=== PATIENT | female | born 1985 | race Caucasian/White ===

== ENCOUNTER 2017-11-26 14:26 | Emergency (ER) | payer MEDICAID, SELFPAY ==
[2017-11-26 15:15] VITALS: BP 112/65; PULSE 77; RESP 20; TEMP 37; O2SAT 97; BMI 27.3
--- NOTE | 2017-11-26 15:34 | HMH.EDUTC ---
[facility] [place] Disposition Clinical Impression: Acute bronchitis Right otitis media Qualifiers: Otitis media type: suppurative Chronicity: acute Recurrence: not specified as recurrent Spontaneous tympanic membrane rupture: without spontaneous rupture Qualified Code(s): H66.001 - Acute suppurative otitis media without spontaneous rupture of ear drum, right ear Disposition: Home, Self-Care Condition on Discharge: Good Instructions: DI for Otitis Media (Middle Ear Infection)-Child, DI for Acute Bronchitis Additional Instructions: * The printed education says otitis media for children but treatment, what to watch for and follow up is similar * Start antibiotic CHANDANA and be sure to take as ordered for the FULL length of time although you should start to feel better in 24-48 hours. * Monitor Temp. Follow up if fever develops * Tylenol and motrin as needed for pain. Typically ibuprofen works faster and lasts longer. I understand you can't afford it over the counter and I will include a prescription * Your cold symptoms and length of that illness is concerning as we discussed. I understand you do NOT want that addressed today, only your ear. BE sure to follow up immediately for new or worsening symptoms but also if your chest congestion worsens, you get short of breath, your wheezing more, fever, aches, chills or you don't seem to improve. * Encourage fluids, water, Gatorade, PowerAde, pedialyte if infant/toddler/child * warm compress often helps when placed over ear * sleep elevated * Follow up with primary care Immediately for new or worsening symptoms, no noticeable improvement in 48-72 hours AND in 10-14 days to ensure ears are back to baseline. Prescriptions: Ibuprofen [Ibuprofen 800mg Tab] 800 mg PO Q6HP PRN #30 tab PRN Reason: Moderate Pain Amoxicillin [Amoxicillin 875MG Tab] 875 mg PO Q12H #20 tab Forms: Work/School Release Time of Disposition: 15:47 Medical Decision Making Vital Signs: 11/26/17 15:15 Temperature 98.6 F Temperature Source Temporal Artery Scan Pulse Rate [Right Radial] 77 Respiratory Rate 20 Blood Pressure [Right Arm] 112/65 Blood Pressure Mean [Right Arm] 80 Blood Pressure Source [Right Arm] Automatic Cuff Blood Pressure Position [Right Arm] Sitting 02 Sat by Pulse Oximetry 97 Oxygen Delivery Method Room Air - Jez Inquiry Pt receiving controlled substance: No - Reevaluation(s) Reevaluation #1: Discussed symptoms and exam with pt. STRONGLY encouraged treatment of cold symptoms . Aware I am concerned about pneumonia or bronchitis. Suggested rather than amoxicillin, we try an antibiotic that will treat both ear, chest, head as well as other medications (like steroids, mucolytics, cough suppressants, bronchodilators) to help with chest. Pt refusing. Adamant she is ONLY here for right ear and ONLY wants right ear treated with the most indicated antibiotic for ear infections . States again that she is not concerned about her cold symptoms but if they get worse or don't get better, she will follow up for that then but not today even though there are medications that could make all her symptoms improve at the same time. [facility] [place] HPI - General Stated complaint: right ear ache Time Seen by Provider: 11/26/17 15:34 Mode of Arrival: Family Vehicle Source of Information: Patient Limitations: No Limitations Description of Symptoms (Recalled from Triage Doc. by RN): PT C/O RIGHT EAR PAIN AND COUGH. HEENT Symptoms (Recalled from RN notes): Yes (RIGHT EAR PAIN) Resp Symptoms (Recalled from RN notes): Yes (COUGH) Skin Symptoms (Recalled from RN notes): No MS Symptoms (Recalled from RN notes): No Functional Status (Recalled from RN notes): NA - History of Present Illness Provider Complaint: c/o right ear pain starting yesterday. Unbearable and in tears throughout the night. Tried otc ear drops. Not sure what kind. Slightly better today and tried to tough it out at work but just couldn't take it any longer . Hearing
--- NOTE | 2017-11-26 15:42 | ED_ITS ---
[facility] [place] Clinical Impression: Acute bronchitis Right otitis media Qualifiers: Otitis media type: suppurative Chronicity: acute Recurrence: not specified as recurrent Spontaneous tympanic membrane rupture: without spontaneous rupture Qualified Code(s): H66.001 - Acute suppurative otitis media without spontaneous rupture of ear drum, right ear Disposition: Home, Self-Care Condition on Discharge: Good Instructions: DI for Otitis Media (Middle Ear Infection)-Child, DI for Acute Bronchitis Additional Instructions: * The printed education says otitis media for children but treatment, what to watch for and follow up is similar * Start antibiotic CHANDANA and be sure to take as ordered for the FULL length of time although you should start to feel better in 24-48 hours. * Monitor Temp. Follow up if fever develops * Tylenol and motrin as needed for pain. Typically ibuprofen works faster and lasts longer. I understand you can't afford it over the counter and I will include a prescription * Your cold symptoms and length of that illness is concerning as we discussed. I understand you do NOT want that addressed today, only your ear. BE sure to follow up immediately for new or worsening symptoms but also if your chest congestion worsens, you get short of breath, your wheezing more, fever, aches, chills or you don't seem to improve. * Encourage fluids, water, Gatorade, PowerAde, pedialyte if infant/toddler/ child * warm compress often helps when placed over ear * sleep elevated * Follow up with primary care Immediately for new or worsening symptoms, no noticeable improvement in 48-72 hours AND in 10-14 days to ensure ears are back to baseline. Prescriptions: Ibuprofen [Ibuprofen 800mg Tab] 800 mg PO Q6HP PRN #30 tab PRN Reason: Moderate Pain Amoxicillin [Amoxicillin 875MG Tab] 875 mg PO Q12H #20 tab Forms: Work/School Release Time of Disposition: 15:47 Medical Decision Making Vital Signs: 11/26/17 15:15 Temperature 98.6 F Temperature Source Temporal Artery Scan Pulse Rate [Right Radial] 77 Respiratory Rate 20 Blood Pressure [Right Arm] 112/65 Blood Pressure Mean [Right Arm] 80 Blood Pressure Source [Right Arm] Automatic Cuff Blood Pressure Position [Right Arm] Sitting 02 Sat by Pulse Oximetry 97 Oxygen Delivery Method Room Air - Jez Inquiry Pt receiving controlled substance: No - Reevaluation(s) Reevaluation #1: Discussed symptoms and exam with pt. STRONGLY encouraged treatment of cold symptoms . Aware I am concerned about pneumonia or bronchitis. Suggested rather than amoxicillin, we try an antibiotic that will treat both ear, chest, head as well as other medications (like steroids, mucolytics, cough suppressants, bronchodilators) to help with chest. Pt refusing. Adamant she is ONLY here for right ear and ONLY wants right ear treated with the most indicated antibiotic for ear infections . States again that she is not concerned about her cold symptoms but if they get worse or don't get better, she will follow up for that then but not today even though there are medications that could make all her symptoms improve at the same time. [facility] [place] - General Stated complaint: right ear ache Time Seen by Provider: 11/26/17 15:34 Mode of Arrival: Family Vehicle Source of Information: Patient Limitations: No Limitations Description of Symptoms (Recalled from Triage Doc. by RN): PT C/O RIGHT EAR PAIN AND COUGH. HEENT Symptoms (Recalled from RN notes): Yes (RIGHT EAR PAIN) Resp Symptoms (Recall
[2017-11-26 15:47] VITALS: BP 133/77; PULSE 67; RESP 18; TEMP 36.6; O2SAT 99
== END 2017-11-26 15:48 | disposition home or self-care (01) ==
PROVIDERS: Emergency Provider Nurse Practitioner Family; Family Provider Family Medicine
DX: H66.001 Acute suppurative otitis media without spontaneous rupture of ear drum, right ear (principal)
CPT/HCPCS: 99201

== ENCOUNTER → 2022-10-06 15:25 | Outpatient (CLI) | payer BC, SELFPAY ==
[2022-10-07 09:01] LABS: Basophils # 0.1 K/mm3 (0-0.2); Basophils % 0.9 % (0.1-2.0); Eosinophils # 0.1 K/mm3 (0.0-0.4); Eosinophils % 0.9 % (0.1-12.0); Hematocrit 38.2 % (37.0-47.0); Hemoglobin 12.1 g/dL (12.2-16.2); Lymphocytes # 2.2 K/mm3 (0.7-4.5); Lymphocytes % 28.8 % (10-50); Mean Corpuscular HGB Conc 31.7 g/dL (31.8-35.4); Mean Corpuscular Hemoglobin 27.5 pg (27.0-31.2); Mean Corpuscular Volume 86.7 fl (81-99); Mean Platelet Volume 13.5 fl (7.4-10.4); Monocytes # 0.5 K/mm3 (0.1-1.0); Monocytes % 6.4 % (1.7-9.3); Neutrophils # 4.8 K/mm3 (1.8-7.8); Platelet Count 242 K/mm3 (142-424); Red Blood Count 4.41 M/mm3 (4.20-5.40); Red Cell Distribution Width 15.6 % (11.5-17.5); White Blood Count 7.6 K/mm3 (4.8-10.8)
[2022-10-07 09:07] LABS: Alanine Aminotransferase 27 U/L (12-78); Albumin Level 4.3 g/dl (3.5-5.0); Albumin/Globulin Ratio 1.3 (1.1-1.8); Alkaline Phosphatase 140 U/L (38-126); Anion Gap 12.4 mEq/L (5-15); Aspartate Amino Transferase 30 U/L (14-36); Bilirubin,Total 0.3 mg/dl (0.2-1.3); Blood Urea Nitrogen 9 mg/dl (7-17); Calcium 10.2 mg/dl (8.4-10.2); Carbon Dioxide 27 mmol/L (22.0-30.0); Chloride 104 mmol/L (98-107); Chol/HDL Ratio 6.3 (1-3.5); Cholesterol 202 mg/dl (140-200); Estimated Glomerular Filt Rate 82 ml/min (>60); GFR (African American) 99 ML/MIN (>60); Globulin 3.2 g/dL (1.3-3.2); Glucose 82 mg/dl (74-100); HDL Cholesterol 32 mg/dl (40-60); Potassium 4.4 mmoL/L (3.5-5.1); Sodium 139 mmol/L (136-145); Total Protein,Serum 7.5 g/dl (6.3-8.2); Triglycerides 231 mg/dl (30-150); VLDL Cholesterol 46 mg/dL (0-40)
[2022-10-07 09:18] LABS: Direct LDL Cholesterol 113.26 mg/dL (100-129)
[2022-10-07 09:24] LABS: 25-OH Vitamin D, Total 28.3 ng/mL (30-100)
[2022-10-07 09:25] LABS: Free T4 (Free Thyroxine) 1.15 ng/dl (0.78-2.19)
[2022-10-07 09:38] LABS: Thyroid Stimulating Hormone 2.41 uIU/mL (0.465-4.68)
[2022-10-25 19:49] LABS: Hep A Ab, IgM NEGATIVE
[2022-10-25 19:50] LABS: Hepatitis B Core Antibody IgM NEGATIVE; Hepatitis B Surface Antigen NEGATIVE; Hepatitis C Antibody >11.0
== END ==
PROVIDERS: PCP Emergency Medicine; Visit Provider Emergency Medicine
DX: K21.9 Gastro-esophageal reflux disease without esophagitis (principal); E55.9 Vitamin D deficiency, unspecified; F19.10 Other psychoactive substance abuse, uncomplicated
CPT/HCPCS: 80053; 80061; 80074; 82306; 84439; 84443; 85025; 87522

== ENCOUNTER 2023-10-25 07:21 | Outpatient (CLI) | payer BC, SELFPAY ==
[2023-10-25 22:00] LABS: Amphetamine/Metha Screen,Urine Negative ng/ml (<1000); Barbiturates Screen,Urine Negative ng/ml (<200); Cannabinoid Screen,Urine Negative ng/ml (<50); Cocaine Screen,Urine Negative ng/ml (<300); Methadone Screen,Urine Positive ng/ml (<300); Opiate Screen,Urine Negative ng/ml (<300)
[2023-10-25 22:26] LABS: Benzodiazepines Screen,Urine Positive ng/ml (<200); Phencyclidine Screen,Urine Negative ng/ml (<25)
[2023-10-31 13:48] LABS: Alprazolam Negative (Cutoff=100); Benzodiazepines Positive ng/mL (Cutoff=100); Clonazepam Positive (.); Clonazepam Confirm 1210 ng/mL (Cutoff=100); Flurazepam Negative (Cutoff=100); Lorazepam Negative (Cutoff=100); Midazolam Negative (Cutoff=100); Temazepam Negative (Cutoff=100); Triazolam Negative (Cutoff=100)
== END 2023-10-25 23:59 ==
LOC: LAB.DROPOF 10-26 07:22
PROVIDERS: PCP Physician Assistant; Visit Provider Physician Assistant
DX: F41.9 Anxiety disorder, unspecified (principal)
CPT/HCPCS: 80307; 80346

== ENCOUNTER 2023-10-26 10:28 | Outpatient (CLI) | payer BC, SELFPAY | END 2023-10-26 23:59 | PROVIDERS: PCP Physician Assistant; Visit Provider Physician Assistant | DX: F41.9 Anxiety disorder, unspecified (principal) | CPT/HCPCS: 80346 ==

== ENCOUNTER 2023-12-16 08:41 | Outpatient (CLI) | payer BC, SELFPAY ==
--- NOTE | 2023-12-16 08:42 | US_ITS ---
FINAL REPORT TECHNIQUE: Limited sonographic imaging of the urinary bladder was obtained. CLINICAL HISTORY: urinary retention FINDINGS: Urinary bladder is incompletely distended. There is minimal postvoid residual of 8 cc. No mass is identified. IMPRESSION: Incomplete distention of the urinary bladder with minimal postvoid residual. Reviewed, Interpreted and Dictated by Ha Chase MD Transcribed by Araceli Ceja Authenticated and [facility]
== END 2023-12-16 23:59 ==
LOC: RAD 08:42
PROVIDERS: PCP Physician Assistant; Visit Provider Physician Assistant
DX: R33.8 Other retention of urine (principal)
CPT/HCPCS: 76857

== ENCOUNTER 2024-01-10 09:18 | Outpatient (RCR) | payer BC, SELFPAY ==
--- NOTE | 2024-01-10 11:53 | HMH.PTOPEV ---
PT Outpatient Evaluation Rehab PT Outpatient Evaluation Start: 01/10/24 09:38 Freq: Status: Active Protocol: Document 01/10/24 09:38 MICHAEL (Rec: 01/10/24 11:53 MICHAEL [id number]) E-signed By Jaye Hodgson, PT Outpatient Therapy Subjective History Subjective History Pt is a 38 y/o female who reports to PT with main complaint of difficulty urinating unless she sits straight up and leans forward. Pt reports she was told she has a prolapsed bladder. Pt reports she had a bladder ultrasound on 12/16/23 with impression of Incomplete distention of the urinary bladder with minimal postvoid residual. Pt reports she has not seen an OBGYN or pelvic health PT for this issues. Pt denies saddle anesthesia or incontinence. Pt with secondary complaint of low back described as tightness with prolonged activity, lifting, and bending forward. Pt reports she often gets muscle spasms of the right posterior hip and intermittent sharp, shooting pain from the right posterior hip to her pinky toe. Pt reports this often feels numb and tingly as well. Pt reports radiating pain occurs ~2x/week and is brief in nature lasting 5 minutes. Pt reports she has birthed 5 children vaginally and has had epidurals with all but one. Pt reports her last child was born in 2020. Pt denies further comorbidities to report. New diagnosis of cancer in past 12 No months? Chief Complaint Pain,Paresthesia Symptom Type Sharp,Numbness,Tingling, Shooting Symptoms Relieved By Rest/Positioning,Heat Symptoms Aggravated By Bending/Stooping,Physical Activity Current Functional Limitations Lifting,Housework,Standing Symptom Description Intermittent Level of pain today (0-10) 0 Pain scale - at its best (0-10) 0 Pain scale - at its worst (0-10) 5 Lumbopelvic Eval Posture Lumbar Spine Posture Standing Position Increased Lordosis Assistive device Assistive Devices None / NA Gait Observation General Gait Pattern Observation No Deviations/Normal Palapation tenderness bilateral lumbar spinal tenderness Yes paraspinal tenderness Yes buttock tenderness Yes Lumbar/Sacral Palpation Findings Tenderness Lumbar/Sacral Palpation Overall Comment 2-3/4 TTP of lumbar SP and gluteal mm, B ASIS Accessory Movement L-spine Vertebrae Accessory Movements Central P/A [place] that Elicit Symptoms L2 bilateral L3 bilateral L4 bilateral L5 bilateral S1 bilateral Range of Motion Lumbar Spine Active Flexion Range of 80 Motion (degrees) Lumbar Spine Active Extension Range of 30 Motion (degrees) Left Lumbar Spine Lateral Flexion Active 15 Range of Motion (degrees) Right Lumbar Spine Lateral Flexion 20 Active Range of Motion (degrees) Manual Muscle Test Bilateral Knee Extension Strength Grade 5 Normal Knee Flexion Strength Grade 5 Normal Hip Flexion Strength Grade 4- Good- Hip Abduction Strength Grade 4- Good- Hip Adduction Strength Grade 4 Good Hip Extension Strength Grade 3+ Fair+ Ankle Dorsiflexion Strength Grade 5 Normal DTR Rt Patellar 1+ Lt Patellar 1+ Rt Gastroc/Soleus 1+ Lt Gastroc/Soleus 1+ Altered Sensation Bilateral LE Dermatome Level S1 Comment decreased right compared to left Special Tests Hip Kamaljit (KANE) Test Positive Right Hip Piriformis Test Negative Right Sciatic Nerve Tension Test Negative Left,Negative Right Unilateral Straight Leg Raise (Lasegue) Negative Left,Negative Right Test Oswestry Index Section 1 Pain Intensity The pain comes and goes and is very mild Section 2 Personal Care (Washing,Dresing) my way of washing or dressing even though it causes some pain Section 3 Lifting I can lift heavy weights, but it gives me extra pain Section 4 Walking I have no pain when walking Section 5 Sitting Pain prevents me from sitting for more than one hour Section 6 Standing I cannot stand more than 1 hour without increasing pain Section 7 Sleeping Because of my pain, my normal night's sleep is less than 4 hours Section 8 Social Life My social life is normal but increases the degree of pain Section 9 Traveling I get no pain when traveling Section 10 Changing Degreee of Pain My pain is neither getting better or worse Score and Risk Level Oswestry Sc 13 Oswestry Risk Level Mild Disability Outpatient Therapy Assessment Impairments Problems/Impairmments Palpation Tenderness,Impaired Range of Motion,Impaired Strength,Impaired Standing, Impaired Lifting,Impaired Household Care,Impaired Bending,Subjective C/O Pain, Impaired Self Care/Self Management Prognosis Rehab Potential Good Comment Treat for low back pain. Refer to pelvic health specialist for prolapsed bladder. Clinical Impression Consistent with Diagnosis Yes Short Term Goals Number of Weeks 2 Improve Self Care/Self Management Yes Patient to be Ind w/ HEP Yes Chcf Goals Number of Weeks 4-6 Decreased Palpation Tenderness Yes Increase Range of Motion Yes: Improve lumbar AROM flex to 100, LF to 25 Increase Strength Yes: Improve LE/core strength to 4+/5 grossly to assist with function Increase Ability to Stand Yes: perform cooking while standing 20' with pain 2-3/10 or less Restore Ability to Lift Objects Overhead Yes: 30# with proper mechanics to assist with LBP and prevent injury Improve Oswestry Score Yes: Improve score to 8 to improve overall QOL Decrease Subjective C/O Pain Yes: Improve LBP at worst to 2 -3/10 to improve overall QOL Outpatient Therapy Plan of Care Treatment Plan May Include Therapeutic Exercise Including Home Yes Exercise Program Manual Therapy Techniques Yes Neuromuscular Re-education Yes Therapeutic Activities to Return to Yes Previous Functional/Work Level ADL/Self Care Education Yes Mechanical Traction Yes Dry Needling Yes Thermal Modalities Yes Electrical Stimulation Yes Ultrasound/Phonophoresis Yes Iontophoresis Yes Massage Yes Eval/Re-Eval Yes Frequency Times per week 2 Duration Number of Weeks 4-6 Addendums This patient is a candidate for social No or vocational rehab? Patient/Guardian verbally acknowledges Yes understanding of treatment program and consents to further treatment? Patient/Guardian verbally acknowledges Yes understanding of diagnosis, prognosis and goals for treatment? Eval Complexity PT Charges 26951 - Low Complexity Shoulder/Elbow Eval Shoulder Objective Measurements Elbow Objective Measurements PHYSICIAN CERTIFICATION: I certify the specified therapy services for Vivian Matthews are required, authorized, and reviewed every 30 days.
== END 2024-01-10 10:30 | disposition home or self-care (01) ==
LOC: PT 09:18
PROVIDERS: Visit Provider Physician Assistant
DX: M54.50 Low back pain, unspecified (principal)
CPT/HCPCS: 97110; 97163

== ENCOUNTER 2024-02-22 15:10 | Outpatient (CLI) | payer BC, SELFPAY ==
[2024-02-22 16:40] LABS: Basophils % 0.7 % (0.1-2.0); Eosinophils # 0.2 K/mm3 (0.0-0.4); Eosinophils % 3.7 % (0.1-12.0); Hematocrit 35.8 % (37.0-47.0); Hemoglobin 11.4 g/dL (12.2-16.2); Lymphocytes # 1.8 K/mm3 (0.7-4.5); Mean Corpuscular Hemoglobin 26.3 pg (27.0-31.2); Mean Corpuscular Volume 82.4 fl (81-99); Mean Platelet Volume 8.7 fl (7.4-10.4); Monocytes # 0.3 K/mm3 (0.1-1.0); Monocytes % 5.8 % (1.7-9.3); Neutrophils # 3.3 K/mm3 (1.8-7.8); Neutrophils % 58.8 % (37.0-80.0); Platelet Count 318 K/mm3 (142-424); Red Blood Count 4.35 M/mm3 (4.20-5.40); Red Cell Distribution Width 16.1 % (11.5-17.5); White Blood Count 5.7 K/mm3 (4.8-10.8)
[2024-02-22 17:06] LABS: Alanine Aminotransferase 17 U/L (12-78); Albumin Level 3.8 g/dl (3.5-5.0); Albumin/Globulin Ratio 1.3 (1.1-1.8); Alkaline Phosphatase 109 U/L (38-126); Anion Gap 10.3 mEq/L (5-15); Aspartate Amino Transferase 26 U/L (14-36); Bilirubin,Total 0.4 mg/dl (0.2-1.3); Blood Urea Nitrogen 9 mg/dl (7-17); Calcium 9.4 mg/dl (8.4-10.2); Carbon Dioxide 28 mmol/L (22.0-30.0); Chloride 108 mmol/L (98-107); Chol/HDL Ratio 6.8 (1-3.5); Cholesterol 196 mg/dl (140-200); Estimated Glomerular Filt Rate 63 ml/min (>60); GFR (African American) 76 ML/MIN (>60); Globulin 2.9 g/dL (1.3-3.2); Glucose 83 mg/dl (74-100); HDL Cholesterol 29 mg/dl (40-60); Potassium 4.3 mmoL/L (3.5-5.1); Sodium 142 mmol/L (136-145); Total Protein,Serum 6.7 g/dl (6.3-8.2); Triglycerides 232 mg/dl (30-150); VLDL Cholesterol 46 mg/dL (0-40)
[2024-02-22 17:18] LABS: Direct LDL Cholesterol 102.65 mg/dL (100-129)
[2024-02-22 17:26] LABS: 25-OH Vitamin D, Total 67.7 ng/mL (30-100)
[2024-02-22 17:39] LABS: Thyroid Stimulating Hormone 2.86 uIU/mL (0.465-4.68)
[2024-02-22 18:51] LABS: Iron 54 ug/dL (37-170)
[2024-02-22 19:02] LABS: Total Iron Binding Capacity 325 ug/dL (265-497)
[2024-02-22 20:01] LABS: Hemoglobin A1C 5.2 % (4.0-6.0)
== END 2024-02-22 23:59 | disposition home or self-care (01) ==
LOC: LAB 16:51
PROVIDERS: PCP Physician Assistant; Visit Provider Family Medicine
DX: E66.9 Obesity, unspecified (principal); D64.9 Anemia, unspecified; Z01.89 Encounter for other specified special examinations; Z68.32 Body mass index [BMI] 32.0-32.9, adult; Z79.899 Other long term (current) drug therapy
CPT/HCPCS: 36415; 80053; 80061; 82306; 83036; 83540; 83550; 84443; 85025

== ENCOUNTER 2024-07-02 15:05 | Outpatient (CLI) | payer BC, SELFPAY ==
[2024-07-02 14:43] LABS: Basophils % 0.6 % (0.1-2.0); Eosinophils # 0.1 K/mm3 (0.0-0.4); Hematocrit 38.6 % (37.0-47.0); Hemoglobin 12.4 g/dL (12.2-16.2); Lymphocytes # 1.7 K/mm3 (0.7-4.5); Lymphocytes % 33.4 % (10-50); Mean Corpuscular HGB Conc 32.1 g/dL (31.8-35.4); Mean Corpuscular Hemoglobin 27.2 pg (27.0-31.2); Mean Corpuscular Volume 84.7 fl (81-99); Mean Platelet Volume 10.4 fl (7.4-10.4); Monocytes # 0.3 K/mm3 (0.1-1.0); Monocytes % 6.1 % (1.7-9.3); Platelet Count 380 K/mm3 (142-424); Red Blood Count 4.55 M/mm3 (4.20-5.40); Red Cell Distribution Width 15.5 % (11.5-17.5)
[2024-07-02 15:05] LABS: Alanine Aminotransferase 43 U/L (12-78); Albumin/Globulin Ratio 1.2 (1.1-1.8); Alkaline Phosphatase 103 U/L (38-126); Anion Gap 12.6 mEq/L (5-15); Aspartate Amino Transferase 27 U/L (14-36); Bilirubin,Total 0.4 mg/dl (0.2-1.3); Blood Urea Nitrogen 6 mg/dl (7-17); Carbon Dioxide 23 mmol/L (22.0-30.0); Chloride 106 mmol/L (98-107); Chol/HDL Ratio 5.5 (1-3.5); Cholesterol 213 mg/dl (140-200); Estimated Glomerular Filt Rate 95 ml/min (>60); GFR (African American) 115 ML/MIN (>60); Globulin 3.3 g/dL (1.3-3.2); Glucose 84 mg/dl (74-100); HDL Cholesterol 39 mg/dl (40-60); Potassium 4.6 mmoL/L (3.5-5.1); Sodium 137 mmol/L (136-145); Total Protein,Serum 7.3 g/dl (6.3-8.2); Triglycerides 82 mg/dl (30-150); VLDL Cholesterol 16 mg/dL (0-40)
[2024-07-02 15:17] LABS: Direct LDL Cholesterol 135.56 mg/dL (100-129)
[2024-07-02 15:23] LABS: 25-OH Vitamin D, Total 62.2 ng/mL (30-100)
[2024-07-02 15:28] LABS: T4 (Thyroxine) 9.4 ug/dl (5.53-11.0); Triiodothryronine (T3) Uptake 32 % (23.5-40.5)
[2024-07-02 15:37] LABS: Thyroid Stimulating Hormone 2.71 uIU/mL (0.465-4.68)
[2024-07-02 15:42] LABS: Thyroid Stimulating Hormone 2.61 uIU/mL (0.465-4.68)
[2024-07-03 11:13] LABS: Thyroid Peroxidase Antibodies 11 IU/mL (0-34)
[2024-07-05 07:17] LABS: Thyroid Stimulating Immunoglob <0.10 IU/L (0.00-0.55)
== END 2024-07-02 23:59 | disposition home or self-care (01) ==
LOC: LAB.DROPOF 15:05
PROVIDERS: PCP Physician Assistant; Visit Provider Physician Assistant
DX: R53.83 Other fatigue (principal); Z68.31 Body mass index [BMI] 31.0-31.9, adult; E66.9 Obesity, unspecified
CPT/HCPCS: 80050; 80053; 80061; 82306; 84436; 84443; 84445; 84479; 85025; 86376

== ENCOUNTER 2025-04-27 19:29 | Emergency (ER) | payer OTHER, SELFPAY ==
--- OUTSIDE RECORDS SUMMARY | 2025-03-13 09:00 | XMS_ITS | Encounter Summary ---
Author Organization Healthcare Address [address] [place] [address] Care Team Providers Care Side Framer Name Role Phone Lio Leo MD Primary Care Provider [phone] Encounter Details Date Type Department Care Team (Late st Contact Info) Description 03/13/2025 9:00 AM EDT Consult [facility] [address] [place] [address] Uvaldo Franco MD [address] [address] Regular astigmatism, bilateral (Primary Dx); [...] Stereo Fly: - Animals: 0/3 Circles: 0/9 [place] 4 Dot Distance: Diplopia- 2R, 3G Near: [...] of EOM sx with Dr. Mayelin Nguyen, [place]. ~5y ago. Now with recurrent X(T). 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 Have asked for [...] This patient will need to be followed long-term in my clinic to ensure optimal visual [...] Description 08/13/2025 1:30 PM EDT Office Visit [facility] [address] [place] [address] Uvaldo Franco MD [address] [place] [address] documented as of this encounter [...] documented as of this encounter Care Teams Side Framer Relationship Specialty Start Date End Date Lio Leo MD [address] [place] [phone] PCP - General Family Medicine 10/24/20 documented as of this encounter
--- OUTSIDE RECORDS SUMMARY | 2025-04-10 09:30 | XMS_ITS | Encounter Summary ---
Author Organization [facility] Address [address] [place] [address] Care Team Providers Care Inventory Taker Name Role Phone Lio Leo MD Primary Care Provider [phone] Reason for Visit * Reason Comments Strabismus Encounter Details Date Type Department Care Team (Late st Contact Info) Description 04/10/2025 9:30 AM EDT Office Visit [facility] - Pediatrics [address] [place] [address] Uvaldo Franco MD [address] [address] Regular astigmatism, bilateral (Primary Dx); [...] Current Outpatient Medications (Ophthalmic Drugs) Medication Sig wgxmehuk-kalztigcz-ikeruzxckwjeqeykuz (Polydex) 3.5-56139-2.1 ointment ophthalmic ointment Apply small amount to [...] Oriented x3: Yes Mood/Affect: Normal Additional Tests [place] 4 Dot Distance: Fusion Near: Fusion Strabismus [...] This patient will need to be [facility] in my clinic to ensure optimal visual [...] Description 08/13/2025 1:30 PM EDT Office Visit [facility] [address] [place] [address] Uvaldo Franco MD [address] [address] documented as of this encounter Visit Diagnoses Diagnosis Regular astigmatism, bilateral- Primary Intermittent exotropia, alternating History of strabismus surgery Diplopia documented in this encounter Additional Health Concerns Assessment Noted Time A Body Mass Index follow-up plan has been documented for the patient 04/10/2025 10:38 AM EDT documented as of this encounter Care Teams Inventory Taker Relationship Specialty Start Date End Date Lio Leo MD [address] [place] [address] PCP - General Family Medicine 10/24/20 documented as of this encounter
[2025-04-27 19:32] VITALS: BP 132/73; PULSE 81; RESP 16; TEMP 36.6; O2SAT 98; BMI 31.8
--- OUTSIDE RECORDS SUMMARY | 2025-04-27 19:43 | XMS_ITS | Encounter Summary ---
Author Organization [facility] Address [address] [place] [address] Care Team Providers Care Passenger Agent Name Role Phone Lio Leo MD Primary Care Provider + [phone] Encounter Details Date Type Department Care Team (Latest Contact Info) Description 04/10/2025 Travel Social History Tobacco Use Types Packs/Day Years [...] on file documented as of this encounter Plan of Treatment Upcoming Encounters Date Type Department Care Team (Late st Contact Info) Description 08/13/2025 1:30 PM EDT Office Visit [facility] - [facility] [address] [place] [address] Uvaldo Franco MD [address] [address] documented as of this encounter Visit Diagnoses Not on filedocumented in this encounter Additional Health Concerns Assessment Noted Time A Body Mass Index follow-up plan has been documented for the patient 04/10/2025 10:38 AM EDT documented as of this encounter Care Teams Passenger Agent Relationship Specialty Start Date End Date Lio Leo MD [address] [place] [address] PCP - General Family Medicine 10/24/20 documented as of this encounter
--- OUTSIDE RECORDS SUMMARY | 2025-04-27 19:43 | XMS_ITS | Encounter Summary ---
Author Organization [facility] Address [address] [place] [address] Care Team Providers Care Tent Assembler Name Role Phone Lio Leo MD Primary Care Provider [phone] Encounter Details Date Type Department Care Team (Late Contact Info) Description 03/15/2025 Telephone [facility] - Pediatrics [address] [place] [address] Uvaldo Franco MD [address] [address] Social History Tobacco Use Types Packs/Day Years [...] as of this encounter Miscellaneous Notes * Telephone Encounter - Audrey Mesa - 03/15/2025 3:05 PM EDT Requested previous sx records documented in this encounter Plan of Treatment Upcoming Encounters Date Type Department Care Team ([facility] Contact Info) Description 08/13/2025 1:30 PM EDT Office Visit [facility] - Pediatrics [address] [place] [address] Uvaldo Franco MD [address] [address] documented as of this encounter Visit Diagnoses Not on filedocumented in this encounter Additional Health Concerns Assessment Noted Time A Body Mass Index follow-up plan has been documented for the patient 12/11/2024 2:19 PM EST documented as of this encounter Care Teams Tent Assembler Relationship Specialty [place] [address] [place] [address] PCP - General Family Medicine 10/24/20 documented as of this encounter
--- OUTSIDE RECORDS SUMMARY | 2025-04-27 19:43 | XMS_ITS | Encounter Summary ---
Author Organization [facility] Address [address] [place] [address] Care Team Providers Care Motor Mechanic Name Role Phone Lio Leo MD Primary Care Provider [phone] Encounter Details Date Type Department Care Team (Latest Contact Info) Description 03/13/2025 Travel Social History Tobacco Use Types Packs/Day [...] Description 08/13/2025 1:30 PM EDT Office Visit [facility] - Pediatrics [address] [place] [address] Uvaldo Franco MD [address] [address] documented as of this encounter Visit Diagnoses Not on filedocumented in this encounter Additional Health Concerns Assessment Noted Time A Body Mass Index follow-up plan has been documented for the patient 12/11/2024 2:19 PM EST documented as of this encounter Care Teams Motor Mechanic Relationship Specialty Start Date End Date Lio Leo MD [address] [place] [address] PCP - General Family Medicine 10/24/20 documented as of this encounter
--- OUTSIDE RECORDS SUMMARY | 2025-04-27 19:43 | XMS_ITS | Encounter Summary ---
Author Organization [facility] Address [address] [place] [address] Care Team Providers Care Filler Block Inserter Remover Name Role Phone Lio Leo MD Primary Care Provider + [phone] Reason for Visit * Reason Onset Date Comments Eye Problem 03/27/2025 Double vision (r ecently had surgery) Encounter Details Date Type Department Care Team (Late st Contact Info) Description 03/27/2025 Telephone [facility] - Pediatrics [address] [place] [address] Uvaldo Franco MD [address] [address] Eye Problem (Double vision (recently had surgery)) Social History Tobacco Use Types Packs/Day Years [...] encounter Miscellaneous Notes * Telephone Encounter - Karyn Hinds Demarco - 03/28/2025 1:20 PM EDT Clinical Concern/Question Reason for Call: Patient is having really bad double vision and feels like she is crossed-eyed . Best contact number: [phone] (home) Optimal time of day to reach caller: ANYTIME Additional comments/information from caller: None Note: Please do not reply to this message. Follow-up communication and further actions as a result of this message need to be communicated with the patient directly, if the patient is not active onMyChart. If the patient is active on MyChart, they will receive notification of the communication/outcome via MyChart. * Telephone Encounter - Marianela Bro - 03/27/2025 1:20 PM EDT Triage Note 03/27/2025 1:20 PM Refill sent to preferred pharmacy on file. documented in this encounter Plan of Treatment Upcoming Encounters Date Type Department Care Team (Late st Contact Info) Description 08/13/2025 1:30 PM EDT Office Visit [facility] - Pediatrics [address] [place] [address] Uvaldo Franco MD [address] [address] documented as of this encounter Visit Diagnoses Not on filedocumented in this encounter Additional Health Concerns Assessment Noted Time A Body Mass Index follow-up plan has been documented for the patient 12/11/2024 2:19 PM EST documented as of this encounter Care Teams Filler Block Inserter Remover Relationship Specialty [place] [address] [place] [address] PCP - General Family Medicine 10/24/20 documented as of this encounter
--- OUTSIDE RECORDS SUMMARY | 2025-04-27 19:43 | XMS_ITS | Encounter Summary ---
Author Organization [facility] Address [address] [place] [address] Care Team Providers Care Proctologist Name Role Phone Lio Leo MD Primary Care Provider [phone] Encounter Details Date Type Department Care Team (Late Contact Info) Description 03/27/2025 Orders Only [facility] - Pediatrics [address] [place] [address] Uvaldo Franco MD [address] [address] Social History Tobacco Use Types [...] Encounters Date Type Department Care Team (Late Contact Info) Description 08/13/2025 1:30 PM EDT Office Visit [facility] Pediatric[facility] [address] [place] [address] Uvaldo Franco MD [address] [address] documented as of this encounter Visit Diagnoses Not on filedocumented in this encounter Additional Health Concerns Assessment Noted Time A Body Mass Index follow-up plan has been documented for the patient 12/11/2024 2:19 PM EST documented as of this encounter Care Teams Proctologist Relationship Specialty Start Date End Date Lio Leo MD [address] [place] [address] PCP - General Family Medicine 10/24/20 documented as of this encounter
--- OUTSIDE RECORDS SUMMARY | 2025-04-27 19:43 | XMS_ITS | Clinical Summary ---
Author Organization [facility] Address [address] [place] [address] Care Team Providers Care Medical Technologist Microbiology Name Role Phone Lio Leo MD Primary Care Provider Allergies No known active allergies Medications methadone (Methadose) 40 MG dispersible tablet 65MG DAILY 6 Active clonazePAM (KlonoPIN) 0.5 MG tablet 4 Active atomoxetine (Strattera) 40 MG capsule 4 Active desvenlafaxine (Pristiq) 100 MG 24 hr tablet 4 Active cariprazine (Vraylar) 3 MG capsule 4 Active neomycin-polymyx in-dexamethameth asone (Polydex) 3.5-15148-6.1 ointment ophthalmic ointment Apply small amount to operative eye(s) 2 times per day for 1 week. 3.5 g 1 5 Active Additional Information Patient not taking.Reported on 04/10/2025 Active Problems Problem Noted Date Diagnosed Date Intermittent exotropia, alternating 12/11/2024 History of strabismus surgery 12/11/2024 Diplopia 12/11/2024 Encounters Date Type Department Care Team Description 04/10/2025 9:30 AM EDT Office Visit [facility] - Pediatrics [address] [place] [address] Uvaldo Franco MD Regular astigmatism, bilateral (Primary Dx); Intermittent exotropia, alternating; History of strabismus surgery; Diplopia 04/10/2025 Travel 03/27/2025 Telephone [facility] [address] [place] [address] Uvaldo Franco MD Eye Problem (Double vision (recently had surgery)) 03/27/2025 Orders Only [facility] [address] [place] [address] Uvaldo Franco MD 03/15/2025 Telephone [facility] [address] [place] [address] Uvaldo Franco MD 03/13/2025 9:00 AM EDT Consult [facility] [address] [place] [address] Uvaldo Franco MD Regular astigmatism, bilateral (Primary Dx); Intermittent exotropia, alternating; History of strabismus surgery; Diplopia 03/13/2025 Travel from Last 3 Months Family History Medical History Relation Name Comments Alcohol abuse Father Hepatitis, C Virus Father Cardiac disorder Other 1 Colon cancer Other 2 Other cancer Other 3 Relation Name Status Comments Father Other 1 Other 2 Other 3 Social History Tobacco Use Types Packs/Day Years Used Date Smoking Tobacco: Every Day Cigarettes Passive Smoke Exposure: Current Smokeless Tobacco: Never Tobacco Cessation:Ready to Q uit: Not Asked; Counseling Given: Not Answered Alcohol Use Standard Drinks/Week Comments Yes 0 (1 standard drink = 0.6 oz pur e alcohol) Comments Unknown Sex and Gender Information Value Date Recorded Sex Assigned at Not on file Legal Sex Female 6:34 PM EDT Gender Identity Not on file Sexual Orientation Not on file Last Filed Vital Signs Vital Sign Reading Time Taken Comments Blood Pressure - - Pulse - - Temperature - - Respiratory Rate - - Oxygen Saturation - - Inhaled Oxygen Concentration - - Weight 64 kg (141 lb 2.2 oz) 05/23/2017 8:57 AM EDT Height 160 cm (5' 3 ) 04/13/2017 9:57 AM EDT Body Mass Index 25 04/13/2017 9:57 AM EDT Plan of Treatment Upcoming Encounters Date Type Department Care Team (Late st Contact Info) Description 08/13/2025 1:30 PM EDT Office Visit [facility] [address] [place] [address] Uvaldo Franco MD [address] [place] [address] Health Maintenance Due Date Last Done Comments [facility]-Depression Screening 1987 [facility]-Infant/Child/Adol SDOH Screenings 1987 [facility]-Varicella Vaccines (1 of 2 - 13+ 2-dose series) 2000 HPV Vaccines (1 - 3-dose series) 2002 [facility]- SDOH Screenings 2005 [facility]-Adult SDOH Screenings 2005 [facility]-DTaP,Tdap,and Td Vaccines (1 - Tdap) 2006 [facility]-Pneumococcal Vaccine: Pediatrics (0 to 5 Years) and At-Risk Patients (6 to 49 Years) (1 of 2 - PCV) 2006 [facility]-Pap Smear 2008 [facility]-Cervical Cancer Screening 2017 [facility]-HPV/Cotest 2017 [facility]-BMDHT-01 Vaccine (1 - 2023- season) 2024 [facility]-Influenza Vaccine (#1) 2025 [facility]-Zoster Vaccines (1 of 2) 2037 [facility]-Hepatitis B Vaccines Completed 999, 02/02/1999, 12/31/1998 [facility]-HIV Screening Completed 08/31/2016 [facility]-Hepatitis C Screening Completed 08/31/2016 [facility]-HIB Vaccines Aged Out No longer e ligible based on patient's age to complete this topic [facility]-Hepatitis A Vaccines Aged Out No longer eligible based on patient's age to complete this topic [facility]-IPV Vaccines Aged Out No longer e ligible based on patient's age to complete this topic [facility]-Rotavirus Vaccines Aged Out No lo nger eligible based on patient's age to complete this topic Procedures Procedure Name Priority Date/Time Associated Diagnosis Comments EXTERNAL PHOTOGRAPHY - OU - BOTH EYES Routine 04/19/2025 4:31 PM EDT Regular astigmatism, bilateral HEPATITIS C ANTIBODY W/REFLEX TO HCV QUANT PCR Routine 08/31/2016 11:14 AM EST HIV 1/2 ANTIBODY/ANTIGEN SCREEN WITH REFLEX TO HIV I/II DIFFERENTIATION Routine 08/31/2016 11:14 AM EST from Last 3 Months or Most Recently Relevant to Health Maintenance Results * External Photography - OU - Both Eyes (04/19/2025 4:31 PM EDT) Anatomical Region Laterality Modality Head Other Uvaldo Franco MD OPHTH PHOTOGRAPHY Final Result * HIV 1 & 2 Antibody/Antigen Screen (08/31/2016 11:14 AM EST) HIV 1 Result NONREACTIVE Screening for HIV 1 and 2 antibodies is NONREACTIVE. No confirmatory testing is required. SUNQUEST 08/31/2016 11:1 4 AM EST 08/31/2016 5:48 PM EST Brandon Canales MD LAB BLOOD ORDERABLES Final Res ult Performing Organization Address City/[facility] de Phone Number SUNQUEST * Hepatitis C Antibody (08/31/2016 11:14 AM EST) Hepatitis C Antibody BEING REPEATED TO CONFIRM SUNQUEST 08/31/2016 11:1 4 AM EST 08/31/2016 5:48 PM EST Brandon Canales MD LAB BLOOD ORDERABLES Final Res ult Performing Organization Address City/State/[facility] Co de Phone Number SUNQUEST from Last 3 Months or Most Recently Relevant to Health Maintenance Insurance [facility] MEDICAID Care Teams Medical Technologist Microbiology Relationship Specialty Start Date End Date Lio Leo MD [address] [place] [address] PCP - General Family Medicine 10/24/20
--- NOTE | 2025-04-27 19:50 | HMH.EDGENADL ---
Discharge Plan Disposition Patient Disposition: Home, Self-Care Prescriptions Prescriptions: New Tobradex ST 0.3-0.05 % drops,suspension 1 drp ophthalmic (eye) Q6H 10 Days Qty: 5 0RF No Action Vraylar 3 mg capsule 3 mg PO DAILY Qty: 30 2RF atomoxetine 80 mg capsule 80 mg PO DAILY Qty: 30 2RF desvenlafaxine succinate 100 mg tablet extended release 24 hr PO clonazepam 1 mg tablet PO methadone 10 mg tablet 105 mg PO DAILY Referrals Follow up/Referrals: Kirsten Barksdale PA [Primary Care Provider, Medical] - See instructions Activity Restrictions/Add. Instructions Additional Instructions/Restrictions: I spoke with Dr. Ace who is on-call for Dr. Franco and we have called in a antibiotic/steroid prescription for you and he recommended that you call Dr. Franco's office first thing in the morning on Tuesday. Clinical Impressions Clinical Impression: Inflammation of suture line, Post surgical complication Print Language Print Language: Central [place] Discharge ED Provider: Ele Sommers General Adult HPI General Chief complaint: Eye Problems Stated complaint: Pain right eye,had surgery 1 month ago Time Seen by Provider: 04/27/25 19:36 Mode of Arrival: Ambulatory Source of Information: Patient Description of Symptoms (Recalled from ER Triage Doc. by RN): Pt presents for evaluation of a stitch that remains in her right eye. Pt states she had surgery 1 month ago, and the stitch is dissolvable but it has not come out. Sclera noted to be red History of Present Illness HPI narrative: Patient is a 39-year-old female presenting today with a postoperative complication. She states that she had bilateral strabismus surgery with Dr. Franco who is a pediatrician/medical doctor who has privileges and multiple outpatient locations where she was operated on at a [place] [facility]. This was about a month ago both eyes had medial scleral inflammation with the left eye is completely improved but the right eye continues to bother her on the medial aspect and there appears to be from historical standpoint according to the patient a retained suture. She did not know what to do with not she should try to follow-up in clinic or come to the emergency department and she should have an emergency department for evaluation for this. Denies any fevers or chills denies any purulent drainage denies any changes in vision or any other symptoms. Related Data Home Medications ?Medication ?Instructions ?Recorded ?Confirmed methadone 10 mg tablet 105 mg PO DAILY RECOVERY 06/11/22 11/20/24 [facility] clonazepam 1 mg tablet mg PO 10/09/24 11/20/24 desvenlafaxine succinate 100 mg mg PO 10/09/24 11/20/24 tablet,extended release 24 hr Previous Rx's ?Medication ?Instructions ?Recorded atomoxetine 80 mg capsule 80 mg PO DAILY #30 caps 05/21/24 cariprazine 3 mg capsule (Vraylar) 3 mg PO DAILY #30 caps 05/21/24 tobramycin 0.3 %-dexamethasone 1 drp ophthalmic (eye) Q6H 10 days 04/27/25 0.05 % eye drops,suspension #5 mL (Tobradex ST) Allergies Allergy/AdvReac Type Severity Reaction Status Date / Time No Known Allergies Allergy Verified 11/20/24 09:00 [facility] Disclaimer: The information contained in this section may have been updated after the patient was seen, as this information can be updated by other users. Medical History (Updated 04/27/25 @ 19:54 by Ele Sommers MD) Vaginal odor ASCUS with positive high risk HPV cervical Breast pain, right Anxiety Attention Deficit Hyperactivity Disorder (ADHD) Social History Smoking Status: Current every day smoker tobacco type: cigarettes packs per day: 1 alcohol intake: never substance use type: former substance user and heroin current occupational status: employed Travel in the last 8 weeks?: None Have you lived/traveled outside US in past 30 days?: No Contact w/someone who lives/traveled outside US past 30 days?: No Exposure to someone with infectious disease in past 14 days?: No Do you have a fever (greater than 100.4 F or 38 C)?: No Have you tested positive for COVID-19?: No Exposed to someone with COVID-19 in past 14 days?: No Do you have a sore throat?: No Do you have a cough?: No Do you have any weakness?: No Do you have any diarrhea?: No Are you experiencing any unusual bleeding?: No Do you have any muscle aches/pain?: No Do you have any abdominal pain?: No Are you experiencing loss of taste or smell?: No Other Medical History Have you received the Pneumonia Vaccine: No ROS Obtained: Yes All systems reviewed & no additional complaints except as documented Physical Exam General General appearance: alert Expanded Eye Exam Both Eyes Image:  1. retained suture 2. inflammation, no edema or purulence Respiratory Respiratory exam: Present normal lung sounds bilaterally Cardiovascular Cardiovascular exam: Present regular rate Neurological Exam Neurological exam: Present alert and oriented X3 Medical Decision Making Medical Records Screening: Per USPSTF and CDC recommendations, given the prevalence of disease in our region, it is our hospital?s policy to screen for HIV and viral Hepatitis for all patients aged 18 and over and those with ongoing risk factors. Jez Inquiry Pt receiving controlled substance: No Vital Signs: 04/27/25 19:32 Temperature 98 F Temperature Source Tympanic Pulse Rate [Right] 81 Respiratory Rate 16 Blood Pressure [Right Arm] 132/73 Blood Pressure Mean [Right Arm] 92 Blood Pressure Source [Right Arm] Automatic Cuff Blood Pressure Position [Right Arm] Sitting 02 Sat by Pulse Oximetry 98 Oxygen Delivery Method Room Air Medical Decision Narrative: 39-year-old with above history and physical most likely with localized inflammation/delayed allergic reaction to the retained suture on the medial aspect of the sclera which was placed during her strabismus surgery. Will attempt to get in touch with the pediatrician/medical doctor on-call for Dr. Franco. I do not see obvious evidence of bacterial infection. Reassessment 8:02 PM I was able to get in contact with Dr. Ace who was on-call for Dr. Franco at [facility] who recommended that I prescribe the patient TobraDex and have the patient call Dr. Franco's office first thing in the morning on Tuesday. This was communicated to the patient prescription sent to the patient's pharmacy patient was discharged in stable condition. Critical Care Critical Care Time Critical Care Time: No
--- NOTE | 2025-04-27 19:55 | PC.NURSE ---
Spoke with transfer center about transferring a pt. speaking with physician at this time
[2025-04-27 20:12] VITALS: BP 132/73; PULSE 81; RESP 16; TEMP 36.7; O2SAT 98
== END 2025-04-27 20:14 | disposition home or self-care (01) ==
PROVIDERS: Emergency Provider Student in an Organized Health Care Education/Training Program; PCP Physician Assistant
DX: H57.11 Ocular pain, right eye (principal); T81.49XA Infection following a procedure, other surgical site, initial encounter; F17.210 Nicotine dependence, cigarettes, uncomplicated
CPT/HCPCS: 99283

== ENCOUNTER 2025-05-30 15:40 | Outpatient (CLI) | payer OTHER, SELFPAY ==
--- OUTSIDE RECORDS SUMMARY | 2025-03-13 09:00 | XMS_ITS | Encounter Summary ---
Author Organization Healthcare Address [address] [place] [address] Care Team Providers Care Laborer Gold Leaf Name Role Phone Lio Leo MD Primary Care Provider [phone] Encounter Details Date Type Department Care Team (Late st Contact Info) Description 03/13/2025 9:00 AM EDT Consult [facility] [address] [place] [address] Uvaldo Franco MD [address] [address] Regular astigmatism, bilateral (Primary Dx); Intermittent exotropia, alternating; History of strabismus surgery; Diplopia Social History Tobacco Use Types Packs/Day Years Used Date Smoking Tobacco: Every Day Cigarettes Passive Smoke Exposure: Current Smokeless Tobacco: Never Alcohol Use Standard Drinks/Week Comments Yes 0 (1 standard drink = 0.6 oz pur e alcohol) Comments Unknown Sex and Gender Information Value Date Recorded Sex Assigned at Not on file Legal Sex Female 6:34 PM EDT Gender Identity Not on file Sexual Orientation Not on file documented as of this encounter Miscellaneous Notes * Addendum Note - Radha Rhodes - 03/13/2025 9:00 AM EDTAddended by: RADHA RHODES on: 04/19/2025 04:31 PM Modules accepted: Orders * Progress Notes - Uvaldo Franco MD - 03/13/2025 9:00 AM EDT Images from the original note were not included. Subjective Patient ID: Vivian Matthews is a 39 y.o. female who presents for . HPI 39 y/o female here for repeat strabismus exam. Pt reports stable visual acuity (VA) since her last visit. Pt denies any pain in the eyes or headaches. Drifting is still the same. Does not use specs. Last edited by Uvaldo Franco MD on 03/13/2025 9:47 AM. ROS Positive for: Eyes Negative for: Constitutional, Gastrointestinal, Neurological, Skin, Genitourinary, Musculoskeletal,HENT, Endocrine, Cardiovascular, Respiratory, Psychiatric, Allergic/Imm, Heme/Lymph Last edited by Asa Vela on 03/13/2025 9:18 AM. No current outpatient medications on file. (Ophthalmic Drugs) No current facility-administered medications for this visit. (Ophthalmic Drugs) Current Outpatient Medications (Other) Medication Sig atomoxetine (Strattera) 40 MG capsule cariprazine (Vraylar) 3 MG capsule clonazePAM (KlonoPIN) 0.5 MG tablet desvenlafaxine (Pristiq) 100 MG 24 hr tablet methadone (Methadose) 40 MG dispersible tablet 65MG DAILY No current facility-administered medications for this visit. (Other) Tobacco Use: High Risk (03/13/2025) Patient History Smoking Tobacco Use: Every Day Smokeless Tobacco Use: Never Passive Exposure: Current The patient has been counseled on tobacco cessation: Yes Allergies: Patient has no known allergies. History obtained through patient. The following historical data was reviewed: The following tests were ordered and reviewed: Sensory Motor Exam performed Objective Base Eye Exam Visual Acuity (Snellen - Linear) Right Left Dist sc 20/20 20/20 Pupils Pupils APD Right PERRL None Left PERRL None Extraocular Movement Right Left Full Full Neuro/Psych Oriented x3: Yes Mood/Affect: Normal Additional Tests Stereo Fly: - Animals: 0/3 Circles: 0/9 [place] 4 Dot Distance: Diplopia- 2R, 3G Near: Diplopia- 2R, 3G Strabismus Exam Distance Near Near +3.00DS Near Bifocals X(T)' 30 0 0 0 X(T) 25 0 0 0 X(T) 20 0 0 X(T) 25 0 0 X(T) 25 0 0 0 X(T) 20 0 0 0 Slit Lamp and Fundus Exam External Exam Right Left External Normal Normal Slit Lamp Exam Right Left Lids/Lashes Normal; no ptosis Normal; no ptosis Conjunctiva/Sclera White and quiet, temp conjunctiva scarring White and quiet, temp conjunctiva scarring Cornea Clear Clear Anterior Chamber Deep and quiet Deep and quiet Iris Normal pupil size and shape Normal pupil size and shape Lens Clear Clear Vitreous Normal Normal Assessment/Plan Diagnoses and all orders for this visit: Regular astigmatism, bilateral Intermittent exotropia, alternating History of strabismus surgery Diplopia History of EOM sx with Dr. Mayelin Nguyen, [place]. ~5y ago. Now with recurrent X(T). 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 Have asked for records, but these have not come yet. Will attempt once more. Poorly controlled X(T). Discussed options, and with this level of control and worsening diplopia/asthenopia, EOM sx recommended. Measurements are stable today. I reviewed the risks and benefits of strabismus surgery, including the possibility of over- or under-correction and the potential need for additional surgery. I discussed the possible lack of binocular vision despite surgery, the possibility of postoperative diplopia, and the potential need for glasses and/or prisms after surgery. I also discussed the possible risks of infection, hemorrhage, lossof vision, and complications from general anesthesia. All questions were answered. Decision for surgery made today. Will plan for BMRp for 25 A complete eye exam of periorbital structures, anterior segment, and ocular motility / strabismus was ordered, reviewed, and interpreted by Uvaldo Franco MD This patient will need to be followed long term care social worker in my clinic to ensure optimal visual development. Treatment and/or monitoring of above conditions is necessary to prevent lifelong visual disability.Exam findings and return to clinic precautions were discussed in detail with the patient and parent/guardian who voiced understanding. Questions sought and answered as able. Follow up for post op. documented in this encounter Plan of Treatment Upcoming Encounters Date Type Department Care Team (Late st Contact Info) Description 08/13/2025 1:30 PM EDT Office Visit [facility] [address] [place] [address] Uvaldo Franco MD [address] [place] [address] documented as of this encounter Procedures Procedure Name Priority Date/Time Associated Diagnosis Comments EXTERNAL PHOTOGRAPHY - OU - BOTH EYES Routine 04/19/2025 4:31 PM EDT Regular astigmatism, bilateral documented in this encounter Results * External Photography - OU - Both Eyes (04/19/2025 4:31 PM EDT) Anatomical Region Laterality Modality Head Other us Uvaldo Franco MD OPHTH PHOTOGRAPHY Final Result documented in this encounter Visit Diagnoses Diagnosis Regular astigmatism, bilateral- Primary Intermittent exotropia, alternating History of strabismus surgery Diplopia documented in this encounter Additional Health Concerns Assessment Noted Time A Body Mass Index follow-up plan has been documented for the patient 12/11/2024 2:19 PM EST documented as of this encounter Care Teams Laborer Gold Leaf Relationship Specialty Start Date End Date Lio Leo MD [address] [place] [phone] PCP - General Family Medicine 10/24/20 documented as of this encounter
--- OUTSIDE RECORDS SUMMARY | 2025-04-10 09:30 | XMS_ITS | Encounter Summary ---
Author Organization [facility] Address [address] [place] [address] Care Team Providers Care Lidding Machine Operator Name Role Phone Lio Leo MD Primary Care Provider [phone] Reason for Visit * Reason Comments Strabismus Encounter Details Date Type Department Care Team (Late st Contact Info) Description 04/10/2025 9:30 AM EDT Office Visit [facility] [address] [place] [address] Uvaldo Franco MD [address] [address] Regular astigmatism, bilateral (Primary Dx); [...] as of this encounter Miscellaneous Notes * Progress Notes - Uvaldo Franco MD - 04/10/2025 9:30 AM EDT Images from the original note were not included. Subjective Patient ID: Vivian Matthews is a 39 y.o. female who presents for Chief Complaint Strabismus . HPI Strabismus In both eyes. Disease is present since childhood. Duration of years. Movement is turning in. Context: when tired. Since onset it is gradually improving. Treatments tried: SX. Response to treatment was no improvement. Comments 39 y.o female who is here for a 2 weeks post op, Bilateral Medial Rectus Plication. Patient with Intermittent exotropia, alternating. Patient states things are blurry and double vision is worse. Sometimes goes away with covering one eye. Both eyes (OU) crossing randomly or looking to the side. Patient reports no eye pain. Last edited by Debora Cui on 04/10/2025 9:56 AM. ROS Positive for: Eyes Negative for: Constitutional, Gastrointestinal, Neurological, Skin, Genitourinary, Musculoskeletal,HENT, Endocrine, Cardiovascular, Respiratory, Psychiatric, Allergic/Imm, Heme/Lymph Last edited by Debora Cui on 04/10/2025 9:49 AM. Current Outpatient Medications (Ophthalmic Drugs) Medication Sig zudyukki-jyihebgcg-uciretzgacwjkingsl (Polydex) 3.5-38745-7.1 ointment ophthalmic ointment Apply small amount to operative eye(s) 2 times per day for 1 week. (Patient not taking: Reported on 04/10/2025) No current facility-administered medications for this visit. (Ophthalmic Drugs) Current Outpatient Medications (Other) Medication Sig atomoxetine (Strattera) 40 MG capsule cariprazine (Vraylar) 3 MG capsule clonazePAM (KlonoPIN) 0.5 MG tablet desvenlafaxine (Pristiq) 100 MG 24 hr tablet methadone (Methadose) 40 MG dispersible tablet 65MG DAILY No current facility-administered medications for this visit. (Other) Tobacco Use: High Risk (04/10/2025) Patient History Smoking Tobacco Use: Every Day Smokeless Tobacco Use: Never Passive Exposure: Current The patient has been counseled on tobacco cessation: Yes Allergies: Patient has no known allergies. History obtained through patient. The following historical data was reviewed: The following tests were ordered and reviewed: Sensory Motor Exam performed Objective Base Eye Exam Visual Acuity (Snellen - Linear) Right Left Dist sc 20/20-1 -1 20/25+ Pupils Pupils APD Right PERRL None Left PERRL None Visual Cheek (Counting fingers) Right Left Full Full Extraocular Movement Right Left Full Full Neuro/Psych Oriented x3: Yes Mood/Affect: Normal Additional Tests [place] 4 Dot Distance: Fusion Near: Fusion Strabismus Exam Method: Alternate cover Distance Near Near +3DS N Bifocals X(T)' 6 0 0 0 0 0 0 0 0 X(T) 6 0 0 0 0 0 0 0 0 Slit Lamp and Fundus Exam External Exam Right Left External Normal Normal Slit Lamp Exam Right Left Lids/Lashes Normal; no ptosis Normal; no ptosis Conjunctiva/Sclera Nasal LISA Nasal LISA Cornea Clear Clear Anterior Chamber Deep and quiet Deep and quiet Iris Normal pupil size and shape Normal pupil size and shape Lens Clear Clear Vitreous Normal Normal Assessment/Plan Assessment & Plan Regular astigmatism, bilateral Intermittent exotropia, alternating History of strabismus surgery Diplopia Healing well status post (s/p) BMRp. No e/o infection. Good motility and alignment with only small angle X(T) remaining. Diplopia intermittently, which I expect will improve with time. UCVA seems blurred to patient. Reassuring with UCVA on chart today. Encouraged frquent Ats and rechcek vision in a few months. RTC precautions discussed A complete eye exam of periorbital structures, anterior segment, and ocular motility / strabismus was ordered, reviewed, and interpreted by Uvaldo Franco MD This patient will need to be followed termite control servicer in my clinic to ensure optimal visual development. Treatment and/or monitoring of above conditions is necessary to prevent lifelong visual disability.Exam findings and return to clinic precautions were discussed in detail with the patient and parent/guardian who voiced understanding. Questions sought and answered as able. Follow up in about 3 months (around 07/11/2025) for Undilated. documented in this encounter Plan of Treatment Upcoming Encounters Date Type Department Care Team (Late st Contact Info) Description 08/13/2025 1:30 PM EDT Office Visit [facility] [address] [place] [address] Uvaldo Franco MD [address] [address] documented as of this encounter Visit Diagnoses Diagnosis Regular astigmatism, bilateral- Primary Intermittent exotropia, alternating History of strabismus surgery Diplopia documented in this encounter Additional Health Concerns Assessment Noted Time A Body Mass Index follow-up plan has been documented for the patient 04/10/2025 10:38 AM EDT documented as of this encounter Care Teams Lidding Machine Operator Relationship Specialty Start Date End Date Lio Leo MD [address] [place] [address] PCP - General Family Medicine 10/24/20 documented as of this encounter
--- OUTSIDE RECORDS SUMMARY | 2025-05-03 15:30 | XMS_ITS | Encounter Summary ---
Author Organization Healthcare Address [address] [place] [address] Care Team Providers Care Black Top Raker Name Role Phone Lio Leo MD Primary Care Provider [phone] Encounter Details Date Type Department Care Team (Late st Contact Info) Description 05/03/2025 3:30 PM EDT Office Visit [facility] [address] [place] [address] Uvaldo Franco MD [address] [address] Diplopia (Primary Dx); History of strabismus surgery; Intermittent exotropia, alternating; Regular astigmatism, bilateral Social History Tobacco Use Types Packs/Day Years [...] Progress Notes - Uvaldo Franco MD - 05/03/2025 3:30 PM EDT Images from the original note were not included. Subjective Patient ID: Vivian Matthews is a 39 y.o. female who presents for . HPI 39 y.o female patient who is here for a 1 month post op. Patient with Intermittent exotropia, alternating. Patient reports going to ED (04/27) due to stitch irritating her right eye (OD). Reports that right eye (OD) and irritated. Patient was given Tobramycin BID right eye (OD). Has feeling much better. Patient is still having diplopia when looking side to side. Still using Last edited by Uvaldo Franco MD on 05/03/2025 4:23 PM. ROS Positive for: Eyes Negative for: Constitutional, Gastrointestinal, Neurological, Skin, Genitourinary, Musculoskeletal,HENT, Endocrine, Cardiovascular, Respiratory, Psychiatric, Allergic/Imm, Heme/Lymph Last edited by Debora Cui on 05/03/2025 3:21 PM. Current Outpatient Medications (Ophthalmic Drugs) Medication Sig tobramycin-dexamethasone (Tobradex) ophthalmic suspension nadqrkkj-thdzedggj-kmrgipcansqwdgujfr (Polydex) 3.5-53796-9.1 ointment ophthalmic ointment Apply small amount to operative eye(s) 2 times per day for 1 week. (Patient not taking: Reported on 05/03/2025) No current facility-administered medications for this visit. (Ophthalmic Drugs) Current Outpatient Medications (Other) Medication Sig atomoxetine (Strattera) 40 MG capsule cariprazine (Vraylar) 3 MG capsule clonazePAM (KlonoPIN) 0.5 MG tablet desvenlafaxine (Pristiq) 100 MG 24 hr tablet methadone (Methadose) 40 MG dispersible tablet 65MG DAILY No current facility-administered medications for this visit. (Other) Tobacco Use: High Risk (05/04/2025) Patient History Smoking Tobacco Use: Every Day Smokeless Tobacco Use: Never Passive Exposure: Current The patient has been counseled on tobacco cessation: Yes Allergies: Patient has no known allergies. History obtained from patient and caregiver, an independent historian. The following historical data was reviewed: The following tests were ordered and reviewed: Sensory Motor Exam performed Objective Base Eye Exam Visual Acuity (Snellen - Linear) Right Left Dist sc 20/20 20/20 Pupils Pupils APD Right PERRL None Left PERRL None Visual Cheek Right Left Full Full Neuro/Psych Oriented x3: Yes Mood/Affect: Normal Additional Tests [place] 4 Dot Distance: Fusion Near: Fusion Strabismus Exam Method: Alternate cover Correction: mn Distance Near Near +3DS N Bifocals Ortho 0 0 0 0 0 0 0 0 X(T) 6-8 0 0 0 0 0 0 0 0 Slit Lamp and Fundus Exam External Exam Right Left External Normal Normal Slit Lamp Exam Right Left Lids/Lashes Normal; no ptosis Normal; no ptosis Conjunctiva/Sclera Tails from EOM suture poking through conj toward limbus, breakdown is occuring. Normal Cornea Clear Clear Anterior Chamber Deep and quiet Deep and quiet Iris Normal pupil size and shape Normal pupil size and shape Lens Clear Clear Vitreous Normal Normal Assessment/Plan Assessment & Plan Diplopia History of strabismus surgery Intermittent exotropia, alternating Regular astigmatism, bilateral Healing well status post (s/p) BMRp. No e/o infection. Good motility and alignment with only small angle X(T) remaining in distance. . She has the tails of the EOM sutures poking up through the conjunctiva nasally right eye (OD), causing irritation. As these breakdown, this will resolve. Discussed stopping Tobradex and using frequent PFATs to encourage suture breakdown. RTC precautions discussed. Looks great other than suture today! A complete eye exam of periorbital structures, anterior segment, and posterior segment (undilated) was ordered, reviewed, and interpreted by Uvaldo Franco MD Treatment and/or monitoring of above conditions is necessary to prevent lifelong visual disability.Exam findings and return to clinic precautions were discussed in detail with the patient and parent/guardian who voiced understanding. Questions sought and answered as able. Follow up in about 3 months (around 08/03/2025) for Undilated. documented in this encounter Plan of Treatment Upcoming Encounters Date Type Department Care Team (Late st Contact Info) Description 08/13/2025 1:30 PM EDT Office Visit [facility] [address] [place] [address] Uvaldo Franco MD [address] [address] documented as of this encounter Visit Diagnoses Diagnosis Diplopia- Primary History of strabismus surgery Intermittent exotropia, alternating Regular astigmatism, bilateral documented in this encounter Additional Health Concerns Assessment Noted Time A Body Mass Index follow-up plan has been documented for the patient 04/10/2025 10:38 AM EDT documented as of this encounter Care Teams Black Top Raker Relationship Specialty [place] [address] [place] [address] PCP - General Family Medicine 10/24/20 documented as of this encounter
--- OUTSIDE RECORDS SUMMARY | 2025-05-31 10:39 | XMS_ITS | Encounter Summary ---
Author Organization Healthcare Address [address] [place] [address] Care Team Providers Care Western Felt Hat Blocker Name Role Phone Lio Leo MD Primary Care Provider [phone] Encounter Details Date Type Department Care Team [...] Description 08/13/2025 1:30 PM EDT Office Visit [facility] [address] [place] [address] Uvaldo Franco MD [address] [address] documented as of this encounter Visit Diagnoses Not on filedocumented in this encounter Additional Health Concerns Assessment Noted Time A Body Mass Index follow-up plan has been documented for the patient 04/10/2025 10:38 AM EDT documented as of this encounter Care Teams Western Felt Hat Blocker Relationship Specialty Start Date End Date Lio Leo MD [address] [place] [address] PCP - General Family Medicine 10/24/20 documented as of this encounter
--- OUTSIDE RECORDS SUMMARY | 2025-05-31 10:39 | XMS_ITS | Clinical Summary ---
Author Organization [facility] Address [address] [place] [address] Care Team Providers Care Merchandise Clerk Name Role Phone Lio Leo MD Primary Care Provider Allergies No known active allergies Medications methadone (Methadose) 40 MG dispersible tablet 65MG DAILY 6 Active clonazePAM (KlonoPIN) 0.5 MG tablet 4 Active atomoxetine (Strattera) 40 MG capsule 4 Active desvenlafaxine (Pristiq) 100 MG 24 hr tablet 4 Active cariprazine (Vraylar) 3 MG capsule 4 Active neomycin-polymyx in-dexamethameth asone (Polydex) 3.5-05694-7.1 ointment ophthalmic ointment Apply small amount to operative eye(s) 2 times per day for 1 week. 3.5 g 1 5 Active Additional Information Patient not taking.Reported on 05/03/2025 tobramycin-dexam ethasone (Tobradex) ophthalmic suspension 5 Active Active Problems Problem Noted Date Diagnosed Date Intermittent exotropia, alternating 12/11/2024 History of strabismus surgery 12/11/2024 Diplopia 12/11/2024 Encounters Date Type Department Care Team Description 05/03/2025 3:30 PM EDT Office Visit [facility] [address] [place] [address] Uvaldo Franco MD Diplopia (Primary Dx); History of strabismus surgery; Intermittent exotropia, alternating; Regular astigmatism, bilateral 05/03/2025 Travel 04/29/2025 Telephone [facility] [address] [place] [address] Uvaldo Franco MD HCN - Patient Message 04/10/2025 9:30 AM EDT Office Visit [facility] [address] [place] [address] Uvaldo Franco MD Regular astigmatism, bilateral (Primary Dx); Intermittent exotropia, alternating; History of strabismus surgery; Diplopia 04/10/2025 Travel 03/27/2025 Telephone [facility] [address] [place] [address] Uvaldo Franco MD Eye Problem (Double vision (recently had surgery)) 03/27/2025 Orders Only [facility] [address] [place] [address] Uvaldo Franco MD 03/15/2025 Telephone [facility] [address] [place] [address] Uvaldo Franco MD 03/13/2025 9:00 AM EDT Consult [facility] [address] [place] [address] Uvaldo Franco MD Regular astigmatism, bilateral (Primary [...] Description 08/13/2025 1:30 PM EDT Office Visit [facility] [address] [facility] [place] [address] Uvaldo Franco MD [address] [address] Health Maintenance Due Date Last Done Comments [facility]-Depression Screening 1987 [facility]-/Child/Adol SDOH Screenings 1987 [facility]-Varicella Vaccines (1 of [...] 2008 [facility]-Cervical Cancer Screening 2017 [facility]-HPV/Cotest 2017 [id number] Vaccine (1 - 2023- season) 2024 [facility]-Influenza [...] 4 AM EST 08/31/2016 5:48 PM EST us Brandon Canales MD LAB BLOOD ORDERABLES Final Res ult [facility] * Hepatitis C Antibody (08/31/2016 11:14 AM EST) Hepatitis C Antibody BEING REPEATED TO CONFIRM [facility] 08/31/2016 11:1 4 AM EST 08/31/2016 5:48 PM EST us Brandon Canales MD LAB BLOOD ORDERABLES Final Res ult [facility]QUEST from Last 3 Months or Most Recently Relevant to Health Maintenance Insurance [facility] MEDICAID Care Teams Merchandise Clerk Relationship Specialty Start Date End Date Lio Leo MD [facility] [place] [address] PCP - General Family Medicine 10/24/20
--- OUTSIDE RECORDS SUMMARY | 2025-05-31 10:39 | XMS_ITS | Encounter Summary ---
Author Organization Healthcare Address [address] [place] [address] Care Team Providers Care Emt Intermediate Name Role Phone Lio Leo MD Primary Care Provider [phone] Encounter Details Date Type Department Care Team (Late Contact Info) Description 03/27/2025 Orders Only [facility] [address] [place] [address] Uvaldo Franco MD [address] [address] Social History Tobacco Use Types [...] Description 08/13/2025 1:30 PM EDT Office Visit [facility] [address] [place] [address] Uvaldo Franco MD [address] [address] documented as of this encounter Visit Diagnoses Not on filedocumented in this encounter Additional Health Concerns Assessment Noted Time A Body Mass Index follow-up plan has been documented for the patient 12/11/2024 2:19 PM EST documented as of this encounter Care Teams Emt Intermediate Relationship Specialty Start Date End Date Lio Leo MD [address] [place] [address] PCP - General Family Medicine 10/24/20 documented as of this encounter
--- OUTSIDE RECORDS SUMMARY | 2025-05-31 10:39 | XMS_ITS | Encounter Summary ---
Author Organization Healthcare Address [address] [place] [address] Care Team Providers Care Shank Inspector Name Role Phone Lio Leo MD Primary Care Provider [phone] Reason for Visit * Reason Onset Date Comments HCN - Patient Message 04/29/2025 Encounter Details Date Type Department Care Team (Late st Contact Info) Description 04/29/2025 Telephone [facility] [address] [place] [address] Uvaldo Franco MD [address] [address] HCN - Patient Message Social History Tobacco Use Types Packs/Day Years [...] encounter Miscellaneous Notes * Telephone Encounter - Tiffany Monroy - 04/29/2025 9:05 AM EDT Patient Phone Message Reason for Call: Pt is asking if she may set up a nurse visit to get a remaining stitch out of her eye. Best contact number and optimal time of day to reach caller: [phone] Note: Please do not reply to this message. Follow-up communication and further actions as a result of this message need to be communicated with the patient directly, if the patient is not active onMyChart. If the patient is active on MyChart, they will receive notification of the communication/outcome via MyChart. documented in this encounter Plan of Treatment Upcoming Encounters Date Type Department Care Team (Late st Contact Info) Description 08/13/2025 1:30 PM EDT Office Visit [facility] [address] [place] [address] Uvaldo Franco MD [address] [address] documented as of this encounter Visit Diagnoses Not on filedocumented in this encounter Additional Health Concerns Assessment Noted Time A Body Mass Index follow-up plan has been documented for the patient 04/10/2025 10:38 AM EDT documented as of this encounter Care Teams Shank Inspector Relationship Specialty Start Date End Date Lio Leo MD [address] [place] [address] PCP - General Family Medicine 10/24/20 documented as of this encounter
--- OUTSIDE RECORDS SUMMARY | 2025-05-31 10:39 | XMS_ITS | Encounter Summary ---
Author Organization Healthcare Address [address] [place] [address] Care Team Providers Care Machine Mover Name Role Phone Lio Leo MD Primary Care Provider [phone] Encounter Details Date Type Department Care Team (Latest Contact Info) Description 05/03/2025 Travel Social History Tobacco Use Types Packs/Day [...] 08/13/2025 1:30 PM EDT Office Visit [facility] [address] [place] [address] Uvaldo Franco MD [address] [address] documented as of this encounter Visit Diagnoses Not on filedocumented in this encounter Additional Health Concerns Assessment Noted Time A Body Mass Index follow-up plan has been documented for the patient 04/10/2025 10:38 AM EDT documented as of this encounter Care Teams Machine Mover Relationship Specialty Start Date End Date Lio Leo MD [address] [place] [address] PCP - General Family Medicine 10/24/20 documented as of this encounter
--- OUTSIDE RECORDS SUMMARY | 2025-05-31 10:39 | XMS_ITS | Patient Health Record ---
Author Organization [facility] Address [address] [facility] [address] [place] [address] Care Team Providers Care Flush Tester Name Role Phone Margarita Zendejas Unavailable [phone] Reason For Referral No Information Social History Social History Additional Details Category Social Info Options Details Miscellaneous: Caffeine: CAFFEINE USE: 3 Plan Of Treatment No Information Medical (General) History Medical History History ICD Code MENSTR FLOW: Medium HEP C PEPCID 20 MG ORAL TABLET Surgical History Surgery Date(Month/Year) denies
[2025-06-01 10:12] LABS: Neisseria gonorrhoeae, NAA Negative (Negative)
[2025-06-03 11:43] LABS: Bacterial Vaginosis Associated 0
== END 2025-05-30 23:59 | disposition home or self-care (01) ==
LOC: LAB.DROPOF 05-31 10:36
PROVIDERS: PCP Obstetrics & Gynecology; Visit Provider Obstetrics & Gynecology
DX: N89.8 Other specified noninflammatory disorders of vagina (principal)
CPT/HCPCS: 87491; 87591; 87798; 87801

== ENCOUNTER 2025-07-29 09:44 | Outpatient (CLI) | payer OTHER, SELFPAY ==
--- NOTE | 2025-07-29 09:46 | MR_ITS ---
FINAL REPORT TECHNIQUE: Multiplanar and multisequence imaging of the lumbar spine was obtained without contrast. CLINICAL HISTORY: right leg / foot numbness and tingling FINDINGS: There is normal alignment of the lumbar vertebral bodies in the sagittal plane. Vertebral body height is preserved. The spinal cord ends at the level of L1. There is normal signal intensity within the substance of the distal spinal cord. No acute bone marrow edema or pathologic marrow replacement. No acute paraspinal abnormality is identified. L1-2: No focal disc herniation, central canal stenosis or neuroforaminal narrowing. L2-3: No focal disc herniation, central canal stenosis or neuroforaminal narrowing. L3-4: No focal disc herniation, central canal stenosis or neuroforaminal narrowing. L4-5: No focal disc herniation, central canal stenosis or neuroforaminal narrowing. L5-S1: Annular disc bulge with degenerative endplate changes and facet osteoarthropathy. There is a small superimposed central disc protrusion. There is mild central canal stenosis. Mild to moderate bilateral neuroforaminal narrowing is seen. IMPRESSION: Degenerative disc disease at L5-S1 with small superimposed central disc protrusion. Reviewed, Interpreted and Dictated by Alina Stewart MD Transcribed by Araceli Ceja Authenticated and [facility]
--- OUTSIDE RECORDS SUMMARY | 2025-07-29 09:47 | XMS_ITS | Clinical Summary ---
Author Organization [facility] Address [address] [place] [address] Care Team Providers Care Compensation Specialist Name Role Phone Lio Leo MD Primary Care Provider Allergies No known active allergies Medications methadone (Methadose) 40 MG dispersible tablet 65MG DAILY 6 Active clonazePAM (KlonoPIN) 0.5 MG tablet 4 Active atomoxetine (Strattera) 40 MG capsule 4 Active desvenlafaxine (Pristiq) 100 MG 24 hr tablet 4 Active cariprazine (Vraylar) 3 MG capsule 4 Active neomycin-polymyx in-dexamethameth asone (Polydex) 3.5-42945-9.1 ointment ophthalmic ointment Apply small amount to [...] Description 05/03/2025 3:30 PM EDT Office Visit [facility] [address] [place] [phone] Uvaldo Franco MD Diplopia (Primary Dx); History of strabismus surgery; Intermittent exotropia, alternating; Regular astigmatism, bilateral 05/03/2025 Travel 04/29/2025 Telephone [facility] [address] [place] [address] Uvaldo Franco MD HCN - Patient Message from Last 3 Months Family History Medical [...] Description 08/13/2025 1:30 PM EDT Office Visit [facility] [address] [place] [address] Uvaldo Franco MD [address] [address] Health Maintenance Due Date Last Done Comments [facility]-Depression Screening 1987 [facility]-/Child/Adol SDOH Screenings 1987 [facility]-Varicella Vaccines (1 of 2 - 13+ 2-dose series) 2000 [facility]- SDOH Screenings 2005 [facility]-Adult SDOH Screenings 2005 [facility]-DTaP,Tdap,and Td Vaccines (1 - Tdap) 2006 [facility]-Pneumococcal Vaccine: Pediatrics (0 to 5 Years) and At-Risk Patients (6 to 49 Years) (1 of 2 - PCV) 2006 [facility]-Pap Smear 2008 HPV Vaccines (1 - 3-dose SCDM series) 2014 [facility]-Cervical Cancer Screening 2017 [facility]-HPV/Cotest 2017 [id number]-65 Vaccine ( - season) 2025 [facility]-Influenza Vaccine (#1) 2025 [facility]-Zoster Vaccines (1 [...] Procedure Name Priority Date/Time Associated Diagnosis Comments HEPATITIS C ANTIBODY W/REFLEX TO HCV QUANT PCR Routine 08/31/2016 11:14 AM EST HIV 1/2 ANTIBODY/ANTIGEN SCREEN WITH REFLEX TO HIV I/II DIFFERENTIATION Routine 08/31/2016 11:14 AM EST from Last 3 Months or Most Recently Relevant to Health Maintenance Results * HIV 1 & 2 Antibody/Antigen Screen [...] Most Recently Relevant to Health Maintenance Insurance MEDICAID Care Teams Compensation Specialist Relationship Specialty Start Date End Date Lio Leo MD [address] [place] [address] PCP - General Family Medicine 10/24/20
--- OUTSIDE RECORDS SUMMARY | 2025-07-29 09:48 | XMS_ITS | Patient Health Record ---
Author Organization [facility] Address [address] [facility] [address] [place] [address] Care Team Providers Care Travel Services Professional Name Role Phone Margarita Zendejas Unavailable [phone] Reason For Referral No Information Social History Social History Additional Details Category Social Info Options Details Miscellaneous: Caffeine: CAFFEINE USE: 3 Plan Of Treatment No Information Medical (General) History Medical History History ICD Code MENSTR FLOW: Medium HEP C PEPCID 20 MG ORAL TABLET Surgical History Surgery Date(Month/Year) denies
--- OUTSIDE RECORDS SUMMARY | 2025-07-29 09:48 | XMS_ITS | Encounter Summary ---
Author Organization [facility] Address [address] [place] [address] Care Team Providers Care Chef Kitchen Manager Name Role Phone Lio Leo MD Primary Care Provider + [phone] Reason for Visit * Reason Onset Date Comments [facility]CN - Patient Message 04/29/2025 Encounter Details Date Type Department Care Team (Late st Contact Info) Description 04/29/2025 Telephone [facility] [address] [place] [address] Uvaldo Franco MD [address] [address] HCN - Patient Message Social [...] optimal time of day to reach caller: [phone] Note: Please do not reply to this [...] Description 08/13/2025 1:30 PM EDT Office Visit [facility] [address] [place] [address] Uvaldo Franco MD [address] [address] documented as of this encounter Visit Diagnoses Not on filedocumented in this encounter Additional Health Concerns Assessment Noted Time A Body Mass Index follow-up plan has been documented for the patient 04/10/2025 10:38 AM EDT documented as of this encounter Care Teams Chef Kitchen Manager Relationship Specialty Start Date End Date Lio Leo MD [address] [place] [address] PCP - General Family Medicine 10/24/20 documented as of this encounter
== END 2025-07-29 23:59 | disposition home or self-care (01) ==
LOC: RAD 09:44
PROVIDERS: PCP Physician Assistant; Visit Provider Physician Assistant
DX: M51.17 Intervertebral disc disorders with radiculopathy, lumbosacral region (principal)
CPT/HCPCS: 72148